=== PATIENT | female | born 1935 | race Caucasian/White ===

== ENCOUNTER 2020-07-29 21:33 | Emergency (ER) | payer MEDICARE, SELFPAY ==
[2020-07-29 21:36] VITALS: BP 169/66; PULSE 70; RESP 18; TEMP 36.2; O2SAT 97
--- NOTE | 2020-07-29 23:32 | ED.LOWEXIN ---
HPI - Extremity Injury (Lower) General Chief Complaint: Extremity Injury, Lower Stated Complaint: extremity injury Time Seen by Provider: 07/29/20 23:32 Source: patient Limitations: no limitations History of Present Illness HPI Narrative: 85 years old white female, had let the tiny skin tear at the right lower leg anteriorly, started bleeding today suddenly. Patient denies any trauma. Patient on aspirin and Plavix. Related Data Home Medications Medication Instructions Recorded Confirmed aspirin [Adult Aspirin] PO 07/29/20 cetirizine [All Day Allergy mg 07/29/20 Relief(cetir)] clopidogrel 07/29/20 hydralazine 07/29/20 lactobacillus combination no.8 07/29/20 [Adult Probiotic] losartan-hydrochlorothiazide tablet 07/29/20 lovastatin mg 07/29/20 metoprolol tartrate 07/29/20 oxybutynin chloride 07/29/20 vit C,S-Ml-[id number]-lutein-zeaxan 07/29/20 [PreserVision AREDS-2] Allergies Allergy/AdvReac Type Severity Reaction Status Date / Time acetaminophen Allergy Unknown Unknown Verified 07/29/20 23:07 ciprofloxacin Allergy Unknown Unknown Verified 07/29/20 23:07 codeine Allergy Unknown Vomiting Verified 07/29/20 23:07 isoniazid Allergy Unknown Unknown Verified 07/29/20 23:07 Review of Systems Review of Systems: Narrative: CONSTITUTIONAL: Denies fever, chills, or sweats. EYES: Denies visual changes, redness, or discharge. ENT: Denies rhinorrhea, congestion, sore throat, or otalgia. CARDIOVASCULAR: Denies chest pain, palpitations, or edema. RESPIRATORY: Denies cough or dyspnea. GASTROINTESTINAL: Denies abdominal pain, nausea, vomiting, or diarrhea. GENITOURINARY: Denies dysuria or hematuria. SKIN: Denies rash or itching. MUSCULOSKELETAL: Denies back pain, joint pain, or myalgia. NEUROLOGIC: Denies headache, numbness, or weakness. PSYCHIATRIC: Denies anxiety or depression. Exam Narrative: Exam Narrative: General appearance: Well-developed, well-nourished Skin: Normal color, right lower leg showed 3 x 3 mm skin tear anteriorly, with dried blood around. No active bleeding at this time. Vascular: Normal peripheral pulses, normal capillary refill. Musculoskeletal: Normal range of motion, nontender back Neurologic: Alert and oriented ?3, ENGROSSER is normal as tested, no gross motor deficit Course Course Emergency Course: Stable Vital Signs Vital signs: Vital Signs Temperature 36.2 C L 07/29/20 21:36 Pulse Rate 70 07/29/20 21:36 Respiratory Rate 18 07/29/20 21:36 Blood Pressure 169/66 H 07/29/20 21:36 Pulse Oximetry 97 07/29/20 21:36 Temperature 36.2 C L 07/29/20 21:36 Pulse Rate 70 07/29/20 21:36 Respiratory Rate 18 07/29/20 21:36 Blood Pressure 169/66 H 07/29/20 21:36 Pulse Oximetry 97 07/29/20 21:36 MDM - Extremity Injury (Lower) MDM Narrative Medical decision making narrative: Patient on aspirin and Plavix, also is 85 years old, her skin is very fragile. The plan to compression dressing and send patient home. Critical Care Time Critical Care Time Critical Care Time: No Discharge Plan Discharge Clinical Impression: Avulsion of skin Patient Disposition: Home, Self-Care Condition: Stable Instructions: Skin Avulsion (ED) Additional Instructions: Return if symptoms are worsening , call your family physician for appointment, take Tylenol as as needed for aches and pain, continue home medications. Prescriptions: No Action cetirizine [All Day Allergy Relief(cetir)] 10 mg Tablet RF: 0 hydralazine 25 mg tablet RF: 0 clopidogrel 75 mg tablet RF: 0 losartan-hydrochlorothiazide 100-25 mg tablet RF: 0 Adult Aspirin 81 mg Tablet
== END 2020-07-29 23:50 | disposition home or self-care (01) ==
PROVIDERS: Emergency Provider Emergency Medicine; PCP Family Medicine
DX: S81.801A Unspecified open wound, right lower leg, initial encounter (principal); Z79.02 Long term (current) use of antithrombotics/antiplatelets; Z79.82 Long term (current) use of aspirin; X58.XXXA Exposure to other specified factors, initial encounter
CPT/HCPCS: 99282

== ENCOUNTER 2022-10-11 17:59 | Emergency (ER) | payer MEDICARE, SELFPAY ==
[2022-10-11 18:56] VITALS: BP 123/52; PULSE 70; RESP 20; TEMP 36.4; O2SAT 96
[2022-10-11 19:30] VITALS: BP 123/52; PULSE 70; RESP 20; TEMP 36.4; O2SAT 96
--- NOTE | 2022-10-11 19:34 | ED.FEMALEGU ---
HPI - Female Genitourinary General Chief complaint: Urogenital-Female Stated complaint: uti Time Seen by Provider: 10/11/22 19:20 Source: patient, RN notes reviewed and old records reviewed Mode of arrival: ambulatory Limitations: no limitations History of Present Illness HPI Narrative: 87-year-old female who presents to [facility] with complaints of lower back pain which started yesterday and urinary frequency and odor. Patient reports that she has not had any fevers, chills or sweats or any nausea. Patient reports that she recently had an arteriogram on her left leg and grandson drove her here tonight. Patient verbalizes past history of UTI infections. MD elicited complaint: UTI Pertinent past history: other (past UTI) Onset (ago): day(s) (day 2 of symptoms) Severity scale (1-10): 3 Related Data Home Medications Medication Instructions Recorded Confirmed aspirin 81 mg tablet 81 mg PO DAILY 07/29/20 10/11/22 cetirizine 10 mg tablet 10 mg PO DAILY 07/29/20 10/11/22 clopidogrel 75 mg tablet 75 mg PO DAILY 07/29/20 10/11/22 hydralazine 25 mg tablet 25 mg PO DAILY 07/29/20 10/11/22 lactobacillus combination no.8 3 1 cell PO DAILY 07/29/20 10/11/22 billion cell capsule (Adult Probiotic) losartan 100 1 tablet PO DAILY 07/29/20 10/11/22 mg-hydrochlorothiazide 25 mg tablet lovastatin 20 mg tablet 20 mg PO DAILY 07/29/20 10/11/22 metoprolol tartrate 25 mg tablet 25 mg PO DAILY 07/29/20 10/11/22 oxybutynin chloride 5 mg tablet 5 mg PO DAILY 07/29/20 10/11/22 vit C 250 mg-vit E 90 mg-zinc 40 1 cap PO DAILY 07/29/20 10/11/22 mg-copper 1 ts-aleftc-pishei capsule (PreserVision AREDS-2) hydrocodone 5 mg-acetaminophen 325 1 tablet PO DIRECTED 10/11/22 10/11/22 mg tablet Allergies Allergy/AdvReac Type Severity Reaction Status Date / Time ciprofloxacin Allergy Unknown Unknown Verified 10/11/22 18:20 codeine Allergy Unknown Vomiting Verified 10/11/22 18:20 isoniazid Allergy Unknown Unknown Verified 10/11/22 18:20 Review of Systems Review of Systems: CONSTITUTIONAL: Denies fever, chills, or sweats. CARDIOVASCULAR: Denies chest pain, palpitations, or edema. RESPIRATORY: Denies cough or dyspnea. GASTROINTESTINAL: Denies abdominal pain, nausea, vomiting, or diarrhea. GENITOURINARY: Reports dysuria, frequency, urgency. reports lower back pain SKIN: Denies rash or itching. MUSCULOSKELETAL: Reports low back pain or myalgia. 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 There is no relevant family history pertinent to the presenting complaint Exam Narrative: GENERAL: Well-appearing, well-nourished, and in no acute distress. HEAD: Normocephalic, atraumatic. NECK: Supple.no lymphadenopathy CHEST: Clear to auscultation. No respiratory distress.SAO2 96% on room air HEART: Regular rate and rhythm. No murmur heard. Normal peripheral pulses. ABDOMEN: Soft, nontender, nondistended, normal active bowel sounds. No CVA tenderness EXTREMITIES: Normal range of motion. No edema. SKIN: Warm, dry, no rash. NEURO: No focal deficits. Alert and oriented x3. Course Course Emergency Course: Patient is aware of diagnosis, understands and agrees to treatment plan.? Anticipatory guidance given.? Patient agrees to follow-up as directed and is aware of reasons to
== END 2022-10-11 19:45 | disposition home or self-care (01) ==
PROVIDERS: Emergency Provider Registered Nurse; PCP Family Medicine
DX: N39.0 Urinary tract infection, site not specified (principal); E78.00 Pure hypercholesterolemia, unspecified; I10 Essential (primary) hypertension; Z86.73 Personal history of transient ischemic attack (TIA), and cerebral infarction without residual deficits; Z79.82 Long term (current) use of aspirin
CPT/HCPCS: 81003; 87077; 87086; 87186; 99213; G0463

== ENCOUNTER → 2022-11-18 08:51 | Outpatient (CLI) | payer MEDICARE, SELFPAY ==
--- NOTE | ~2022-11-18 | XR_ITS ---
AP and lateral views of the right hip Clinical history: Pain Findings: No acute fracture or dislocation is seen. Osseous alignment is anatomic. Right hip joint is preserved. Soft tissues are unremarkable. Impression: No significant abnormality is seen. Reviewed, dictated and finalized at location M. M [employer] SURVEILLANCE MONITOR Impression: No significant abnormality is seen.
--- NOTE | ~2022-11-18 | XR_ITS ---
EXAMINATION: XR thoracic spine 2V DATE: 11/18/2022 09:49 INDICATION: Back pain TECHNIQUE: AP and lateral views of the thoracic spine are obtained COMPARISON: 11/27/2016 FINDINGS: The bones are osteopenic which limits the sensitivity for fracture however none is seen. Th e vertebral body heights are normal. There is mild loss of intervertebral disc space height throughou t the thoracic spine. Small degenerative osteophytes project from the anterior endplates of multiple vertebral bodies. Calcified atherosclerosis is noted. Surgical clips in the right upper quadrant are likely from prior cholecystectomy. There are surgical changes in the right mid and upper lung zones. IMPRESSION: 1. Moderate thoracic spondylosis without acute findings or significant interval change. Reviewed, dictated and finalized at location B. NING OPERATOR
== END ==
DX: M54.6 Pain in thoracic spine (principal); M25.551 Pain in right hip; M47.894 Other spondylosis, thoracic region
CPT/HCPCS: 72070; 73502